=== PATIENT | female | born 2000 | race African-American/Black ===

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

== ENCOUNTER 2022-11-13 15:43 | Emergency (ER) | payer SELFPAY ==
[2022-11-13] MEDS ORDERED: Metoclopramide 5 MG Tab PO ONE (17:56)
[2022-11-13] MEDS ORDERED: Ketorolac 30 MG/ML SDV IM ONE (17:56)
[2022-11-13] MEDS ORDERED: Acetaminophen 325 MG Tab PO ONE (17:57)
== END 2022-11-13 18:42 | disposition home or self-care (01) ==
LOC: MW.ED 15:43
DX: R51.9 Headache, unspecified (principal)
CPT/HCPCS: 96372; 99283; A9270; J1885